=== PATIENT | female | born 1935 | race African-American/Black ===

== ENCOUNTER 2018-08-04 07:36 | Emergency (ER) | payer SELFPAY ==
[~2018-08-04] VITALS: Ht 167.6 cm; Wt 81.6 kg
[~2018-08-04 07:36] MED LIST: ASPI-492 PO; CITA-77 PO; CLON0.3T PO; FURO40TA4 PO; GABA300C10 PO; HYDR-2551 PO; HYDR-4072 PO; LOSA-49 PO; NIFE90TA30 PO
[2018-08-04] MEDS ORDERED: SODIUM CHLORIDE 0.9% 1,000 ML IV ONE (11:36)
[2018-08-04 12:22] LABS: Urine Bacteria FEW /hpf (None Seen); Urine Blood Negative /uL (Negative); Urine Specific Gravity 1.019 (1.001-1.035); Urine WBC 4 /hpf (0 - 5)
[2018-08-04 13:40] LABS: Hemoglobin 11.2 g/dL (12.2-16.2); Nucleated Red Blood Cells % 0.1 %; White Blood Cell 6.5 10^3/uL (4.4-10.8)
[2018-08-04 13:42] LABS: Basophils # (auto) 0 uL; Basophils % (auto) 0.6 % (0.0-2.0); Eosinophils # (auto) 0.2 uL; Eosinophils % (auto) 3.1 % (0.0-7.0); Hematocrit 33.5 % (36.0-46.0); Lymphocytes # (auto) 1.1 uL; Lymphocytes % (auto) 16.5 % (10.0-50.0); Mean Corpuscular Hemoglobin 34.1 pg (28.0-32.0); Mean Corpuscular Hgb Conc. 33.5 g/dL (32.0-36.0); Mean Corpuscular Volume 101.6 fL (80.0-100.0); Monocytes # (auto) 0.8 uL; Monocytes % (auto) 11.6 % (0.0-12.0); Neutrophils # (auto) 4.4 uL; Neutrophils % (auto) 68.2 % (37.0-80.0); Platelet Count (auto) 196 10^3/uL (140-450); Red Cell Distribution Width 14.3 % (11.8-14.3)
[2018-08-04 13:58] LABS: Anion Gap 8 (5-15); Blood Urea Nitrogen 54 mg/dL (7-18); Calcium 7.4 mg/dL (8.5-10.1); Carbon Dioxide 21 mmol/L (21-32); Chloride 111 mmol/L (98-107); Glucose 91 mg/dL (74-106); Lipase 346 U/L (73-393); Potassium 3.7 mmol/L (3.5-5.1); Sodium 140 mmol/L (136-145)
[2018-08-04 14:00] LABS: Alanine Aminotransferase 67 U/L (13-56); Aspartate Aminotransferase 43 U/L (15-37); BUN/Creatinine Ratio 30.5; GFR African American 35 mL/min; GFR Non-African American 29 mL/min
[2018-08-04 14:03] LABS: Alkaline Phosphatase 118 U/L (45-117); Bilirubin, Total 0.6 mg/dL (0.2-1.0); Total Protein 7.2 g/dL (6.4-8.2)
[2018-08-04 14:20] VITALS: BP 177/84
[2018-08-04] MEDS ORDERED: cefTRIAXone 1GM/50ML D5W 50 ML IV ONE (16:00)
[2018-08-04] MEDS ORDERED: FUROSEMIDE 40 MG/4 ML VIAL IV ONE (16:00)
[2018-08-04] MEDS ORDERED: LEVOFLOXACIN 500 MG TAB PO ONE (16:30)
[2018-08-04] MEDS ORDERED: FUROSEMIDE 20 MG TAB PO ONE (16:30)
== END 2018-08-04 17:44 | disposition home or self-care (01) ==
LOC: ER 07:36 → EDBD 07:36 → ER 17:44
DX: N39.0 Urinary tract infection, site not specified (principal); R60.9 Edema, unspecified; D64.89 Other specified anemias; I48.2 Chronic atrial fibrillation; R74.8 Abnormal levels of other serum enzymes; I13.0 Hypertensive heart and chronic kidney disease with heart failure and stage 1 through stage 4 chronic kidney disease, or unspecified chronic kidney disease; N18.3 Chronic kidney disease, stage 3 (moderate); I50.9 Heart failure, unspecified; M19.90 Unspecified osteoarthritis, unspecified site; J45.909 Unspecified asthma, uncomplicated; E78.5 Hyperlipidemia, unspecified; Z79.82 Long term (current) use of aspirin; Z79.899 Other long term (current) drug therapy
CPT/HCPCS: 36415; 71046; 74176; 80053; 81001; 83690; 83735; 83880; 84443; 85025; 93005; 96360; 99284; J7030; 96361

== ENCOUNTER 2018-08-21 15:43 | Inpatient (IN) | payer OTHER ==
[~2018-08-21] VITALS: Ht 162.6 cm; Wt 75.3 kg
[2018-08-21] MEDS ORDERED: methylPREDNISolone SOD SUCC 125 MG/2 ML VL IV ONE (17:00)
[2018-08-21] MEDS ORDERED: diphenhdrAMINE HCL 50 MG/1 ML VL IV ONE (17:00)
[2018-08-21 17:10] LABS: Eosinophils # (auto) 0.1 uL; Eosinophils % (auto) 1.9 % (0.0-7.0); Hemoglobin 11.3 g/dL (12.2-16.2)
[2018-08-21 17:11] LABS: Basophils # (auto) 0.1 uL; Basophils % (auto) 0.7 % (0.0-2.0); Hematocrit 34.5 % (36.0-46.0); Lymphocytes # (auto) 1.1 uL; Lymphocytes % (auto) 15.3 % (10.0-50.0); Mean Corpuscular Hemoglobin 33.6 pg (28.0-32.0); Mean Corpuscular Hgb Conc. 32.7 g/dL (32.0-36.0); Mean Corpuscular Volume 102.6 fL (80.0-100.0); Monocytes # (auto) 0.9 uL; Monocytes % (auto) 13.1 % (0.0-12.0); Neutrophils # (auto) 4.8 uL; Platelet Count (auto) 165 10^3/uL (140-450); Red Blood Cells 3.36 10^6/uL (4.0-5.20); Red Cell Distribution Width 14.5 % (11.8-14.3)
[2018-08-21 17:29] LABS: INR 1.07 (0.9-1.15); Prothrombin Time 11.4 sec (9.27-12.13)
[2018-08-21] MEDS ORDERED: EPINEPHrine HCL 1 MG/1 ML AMP SC ONE (17:30)
[2018-08-21 17:31] LABS: Albumin 3.2 g/dL (3.4-5.0); BUN/Creatinine Ratio 21.2; Calcium 8.1 mg/dL (8.5-10.1); Potassium 4.2 mmol/L (3.5-5.1)
[2018-08-21 17:35] LABS: Bilirubin, Total 0.6 mg/dL (0.2-1.0); Total Protein 7.3 g/dL (6.4-8.2)
[2018-08-21] MEDS ORDERED: diphenhdrAMINE HCL 50 MG/1 ML VL IV PRN (21:00)
[2018-08-21] MEDS ORDERED: TEMAZEPAM 15 MG CAP PO PRN (21:00)
[2018-08-21] MEDS ORDERED: MORPHINE SULFATE 4 MG/ML SYR/VIAL IV PRN (21:00)
[2018-08-21] MEDS ORDERED: ACETAMINOPHEN 325 MG TAB PO PRN (21:00)
[2018-08-21] MEDS ORDERED: NITROGLYCERIN 0.4 MG SL TAB SL PRN (21:00)
[2018-08-21] MEDS ORDERED: ONDANSETRON HCL 4 MG/2 ML VIAL IV PRN (21:00)
[2018-08-21] MEDS ORDERED: FUROSEMIDE 20 MG/2 ML VIAL IV ONE (21:00)
[2018-08-21] MEDS: cloNIDine HCL 0.1 MG TAB PO PRN (21:56)
[2018-08-21 23:15] VITALS: BP 162/87
--- NOTE | 2018-08-21 23:15 | NUR ---
Telemetry admit from ER NARAVINAYAK admitted to Telemetry unit after SBAR received. Patient oriented to Rachel Navas, primary RN, unit, room, bed, and unit policies regarding patient care and visiting hours. Patient now on continuous telemetry monitoring, tele box #[id number] and telemetry reading on arrival to unit is SB . Patient placed on bedside oxygen, weighed by bedscale and encouraged to call if they need something. All questions and concerns addressed, patient verbalized understanding. Note: alert and oriented x 4. On room air with even and unlabored respirations. no s/s of distress. Noted +2 pitting edema to lower extremities. Bilateral eyes swollen however patient is able to open both eyes. Patient is able to turn in bed independently. Patient ambulates with moderate assistance but very weak, provided BSC, within reach. Instructed patient to call for assistance PRN. bed low locked position with side rails up x 2 and call light within reach, bed alarm on. Will continue to monitor.
[2018-08-22] MEDS: cloNIDine HCL 0.1 MG TAB PO PRN (00:07)
[2018-08-22] MEDS: HYDROcodone-ACET 5/325MG TAB PO PRN ×2 (00:08→20:56)
[2018-08-22 05:20] VITALS: BP 119/59
[2018-08-22 06:31] LABS: Basophils # (auto) 0 uL; Eosinophils # (auto) 0.2 uL; Hemoglobin 10.2 g/dL (12.2-16.2); Neutrophils # (auto) 4.1 uL
[2018-08-22 06:35] LABS: Basophils % (auto) 0.8 % (0.0-2.0); Eosinophils % (auto) 2.5 % (0.0-7.0); Lymphocytes % (auto) 15.9 % (10.0-50.0); Mean Corpuscular Hemoglobin 34.5 pg (28.0-32.0); Mean Corpuscular Hgb Conc. 33.9 g/dL (32.0-36.0); Mean Corpuscular Volume 101.7 fL (80.0-100.0); Monocytes # (auto) 0.8 uL; Monocytes % (auto) 13.6 % (0.0-12.0); Neutrophils % (auto) 67.2 % (37.0-80.0); Platelet Count (auto) 138 10^3/uL (140-450); Red Blood Cells 2.95 10^6/uL (4.0-5.20); Red Cell Distribution Width 14.7 % (11.8-14.3); White Blood Cell 6.1 10^3/uL (4.4-10.8)
[2018-08-22 06:52] LABS: Albumin 2.7 g/dL (3.4-5.0); BUN/Creatinine Ratio 21.8; Potassium 4.3 mmol/L (3.5-5.1)
--- NOTE | 2018-08-22 07:00 | NUR ---
Closing Note patient resting in bed with even and unlabored respirations. No S/S of distress/SOB. IV intact and patent. Bed low locked position with side rails up x 2 and call light within reach, bed alarm on. Endorsed care to day shift RN.
[2018-08-22 07:04] LABS: Bilirubin, Total 0.9 mg/dL (0.2-1.0); Total Protein 6.2 g/dL (6.4-8.2)
--- NOTE | 2018-08-22 08:00 | NUR ---
RECEIVED PATIENT ALERT AND ORIENTED X4, NOT IN DISTRESS, RR=18 SAT=97%, S SARABJIT R=54 ON TELE MONITOR, DENIED CHEST PAIN OR SOB, ABDOMEN SOFT WITH ACTIVE BS, LAST BM=08/20/18 REPORTED, FACIAL EDEMA AND BILATERAL LOWER EXTREMITIES +2 EDEMA NOTED, RADIAL AND PEDAL PULSES PALPABLE, HEAD OF BED ELEVATED, BED ON LOW POSITION, RAILS UP X2, CALL LIGHT ON REACH, RESTING AND SLEEPING AT THIS MOMENT, WILL CONTINUE MONITORING.
[2018-08-22 09:00] VITALS: BP 119/58
[2018-08-22] MEDS ORDERED: methylPREDNISolone SOD SUCC 125 MG/2 ML VL IV ONE (09:15)
[2018-08-22] MEDS ORDERED: MORPHINE SULFATE 4 MG/ML SYR/VIAL IV PRN (09:30)
[2018-08-22] MEDS: diphenhdrAMINE HCL 50 MG/1 ML VL IV SCH ×2 (09:30→17:48)
[2018-08-22] MEDS ORDERED: FUROSEMIDE 40 MG TAB PO SCH (10:00)
[2018-08-22] MEDS ORDERED: LOSARTAN POTASSIUM 50 MG TAB PO SCH (10:00)
[2018-08-22] MEDS ORDERED: PANTOPRAZOLE 40 MG/10 ML VIAL IV SCH (10:00)
[2018-08-22] MEDS ORDERED: NIFEdipine ER 30 MG TAB PO SCH (10:00)
[2018-08-22] MEDS ORDERED: PANTOPRAZOLE 40 MG TAB PO SCH (10:00)
--- NOTE | 2018-08-22 10:00 | NUR ---
OUT OF BED TO BSC WITH ASSISTANCE AND BACK TO BED, TOLERATED WELL, STRICT NPO ORDERED, PENDING TRANSFER TO [facility], PENDING SS PROCESS, WILL CONTINUE MONITORING.
--- NOTE | 2018-08-22 11:33 | NUR ---
FAXED TRANSFER ORDER TO [facility]
[2018-08-22 12:30] VITALS: BP 140/72
--- NOTE | 2018-08-22 15:15 | NUR ---
[facility] AUTH PER CARMEN PEREZ OF [facility] IS [id number] [facility] ON WILL CALL
[2018-08-22 17:00] VITALS: BP 134/74
--- NOTE | 2018-08-22 18:00 | NUR ---
PENDING TRANSFER TO [facility], WAITING FOR BED REPORTED BY THE SS, INFILTRATED IV SITE D/C FORM LT.ARM, NEW SITE G 22 INSERTED ON RT ARM, TOLERATED WELL, NOT IN DISTRESS, DENIED PAIN, RESTING AND WATCHING TV AT THIS MOMENT.
--- NOTE | 2018-08-22 19:18 | NUR ---
NOT IN DISTRESS, RESTING ON BED, REPORT WAS GIVEN TO THE [employer] TECHNOLOGIST RN.
--- NOTE | 2018-08-22 19:45 | NUR ---
Opening Shift Note Assumed care of patient, awake and alert, oriented x 4. on room air with even and unlabored respirations. No S/S of distress or SOB. IV intact and patent. Bed low locked position with side rails up x 2 and call light within reach, bed alarm on. patient turns independently in bed and uses BSC with minimal assistance. Instructed on POC and to call for assist PRN, will continue to monitor for changes Q1hr and PRN.
[2018-08-22 22:06] VITALS: BP 130/74
--- NOTE | 2018-08-22 22:33 | NUR ---
Family notified of transfer spoke with patients daughter Kelsea, updated on transfer and room number, Kelsea verbalized understanding.
--- NOTE | 2018-08-22 22:45 | NUR ---
Report given to Loretta CISNEROS at [facility]
--- NOTE | 2018-08-22 23:15 | NUR ---
Called [facility] ETA 2 hours
--- NOTE | 2018-08-23 00:40 | NUR ---
Pt being trans to another hosp Order obtained for transfer of VINAYAK BAINS to [facility]. Report called/given to Loretta CISNEROS. Report given to EMS transport team. Medication reconciliation form completed and copy given to patient. Transported via [facility] along with copied chart and imaging films/disk and all personal belongings. No distress noted on time of departure. Family notified of destination and room number, Kelsea verbalized understanding. NOTE:
== END 2018-08-23 00:40 | disposition short-term general hospital (02) | DRG 915 ==
LOC: EDUNIT# 15:43 → ER 15:46 → TELE 21:12 → TELE-CENTR 23:13
PROVIDERS: ADMIT Nurse Practitioner; ATTEND Family Medicine
DX: T78.3XXA Angioneurotic edema, initial encounter (principal); I50.33 Acute on chronic diastolic (congestive) heart failure; I13.0 Hypertensive heart and chronic kidney disease with heart failure and stage 1 through stage 4 chronic kidney disease, or unspecified chronic kidney disease; D63.8 Anemia in other chronic diseases classified elsewhere; E78.5 Hyperlipidemia, unspecified; J45.909 Unspecified asthma, uncomplicated; N18.3 Chronic kidney disease, stage 3 (moderate); Z82.49 Family history of ischemic heart disease and other diseases of the circulatory system
CPT/HCPCS: 36415; 71045; 80053; 83880; 84484; 85025; 85610; 85730; 87081; 96372; 96374; 96375; A6257; C9113; G0378; J2405

== ENCOUNTER 2018-09-11 16:20 | Inpatient (IN) | payer OTHER ==
[~2018-09-11] VITALS: Ht 165.1 cm; Wt 81.6 kg
[2018-09-11 17:50] LABS: Basophils # (auto) 0.1 uL; Basophils % (auto) 1.1 % (0.0-2.0); Eosinophils # (auto) 0 uL; Eosinophils % (auto) 0.8 % (0.0-7.0); Hematocrit 37.2 % (36.0-46.0); Hemoglobin 11.8 g/dL (12.2-16.2); Lymphocytes # (auto) 0.6 uL; Lymphocytes % (auto) 11.1 % (10.0-50.0); Mean Corpuscular Hemoglobin 31.8 pg (28.0-32.0); Mean Corpuscular Hgb Conc. 31.8 g/dL (32.0-36.0); Mean Corpuscular Volume 100.1 fL (80.0-100.0); Monocytes # (auto) 0.7 uL; Monocytes % (auto) 12.2 % (0.0-12.0); Neutrophils # (auto) 4.2 uL; Neutrophils % (auto) 74.8 % (37.0-80.0); Nucleated Red Blood Cells % 0.1 %; Platelet Count (auto) 191 10^3/uL (140-450); Red Blood Cells 3.71 10^6/uL (4.0-5.20); Red Cell Distribution Width 14.9 % (11.8-14.3); White Blood Cell 5.6 10^3/uL (4.4-10.8)
[2018-09-11 18:08] LABS: Alanine Aminotransferase 25 U/L (13-56); Albumin 2.8 g/dL (3.4-5.0); Anion Gap 10 (5-15); Aspartate Aminotransferase 19 U/L (15-37); BUN/Creatinine Ratio 11.7; Blood Urea Nitrogen 20 mg/dL (7-18); Carbon Dioxide 20 mmol/L (21-32); Chloride 108 mmol/L (98-107); GFR African American 36 mL/min; GFR Non-African American 30 mL/min; Magnesium 2.3 mg/dL (1.6-2.6); Potassium 4.6 mmol/L (3.5-5.1); Sodium 138 mmol/L (136-145)
[2018-09-11 18:11] LABS: Alkaline Phosphatase 158 U/L (45-117); Bilirubin, Total 0.8 mg/dL (0.2-1.0); Total Protein 6.9 g/dL (6.4-8.2)
[2018-09-11 18:14] LABS: INR 1.22 (0.9-1.15); Partial Thromboplastin Time 35.3 sec (23.78-33.04); Prothrombin Time 12.9 sec (9.27-12.13)
[2018-09-11 18:16] LABS: Glucose 96 mg/dL (74-106)
[2018-09-11 19:39] LABS: Urine Bacteria FEW /hpf (None Seen); Urine Blood Negative /uL (Negative); Urine Specific Gravity 1.008 (1.001-1.035); Urine WBC 1 /hpf (0 - 5)
[2018-09-11] MEDS ORDERED: methylPREDNISolone SOD SUCC 125 MG/2 ML VL IV ONE (19:45)
[2018-09-11] MEDS ORDERED: diphenhdrAMINE HCL 50 MG/1 ML VL IV ONE (19:45)
[2018-09-11] MEDS ORDERED: ONDANSETRON HCL 4 MG/2 ML VIAL IV PRN (21:45)
[2018-09-11] MEDS ORDERED: ACETAMINOPHEN 500 MG TAB PO PRN (21:45)
[2018-09-11] MEDS ORDERED: ALBUTEROL SULF 2.5 MG/0.5ML(0.5%) NEB SOLN NEB ONE (21:45)
[2018-09-11] MEDS ORDERED: LORazepam 2MG/ML-1ML VIAL IV PRN (21:45)
[2018-09-11] MEDS ORDERED: diphenhdrAMINE HCL 50 MG/1 ML VL IV PRN (21:45)
[2018-09-11] MEDS ORDERED: cefTRIAXone 1GM/50ML D5W 50 ML IV ONE (21:45)
[2018-09-11] MEDS ORDERED: MORPHINE SULFATE 4 MG/ML SYR/VIAL IV PRN (21:45)
[2018-09-11] MEDS ORDERED: FUROSEMIDE 20 MG/2 ML VIAL IV ONE (21:45)
[2018-09-11] MEDS ORDERED: hydrALAZINE HCL 20 MG/ML VL IV PRN (22:00)
[2018-09-11] MEDS: methylPREDNISolone SOD SUCC 40 MG/ML VL IV SCH (23:33)
[2018-09-11] MEDS: hydrALAZINE HCL 25 MG TAB PO SCH (23:44)
[2018-09-12] MEDS: CLINDAMYCIN 600MG IV 50 ML IV SCH ×3 (00:18→14:12)
[2018-09-12] MEDS ORDERED: SODIUM CHLORIDE 0.9% 250 ML IV ONE (03:30)
[2018-09-12 03:52] LABS: Basophils # (auto) 0 uL; Basophils % (auto) 0.7 % (0.0-2.0); Eosinophils # (auto) 0.1 uL; Eosinophils % (auto) 1.7 % (0.0-7.0); Hematocrit 38.7 % (36.0-46.0); Hemoglobin 12.6 g/dL (12.2-16.2); Lymphocytes # (auto) 0.4 uL; Lymphocytes % (auto) 6.5 % (10.0-50.0); Mean Corpuscular Hemoglobin 32.4 pg (28.0-32.0); Mean Corpuscular Hgb Conc. 32.7 g/dL (32.0-36.0); Monocytes # (auto) 0.1 uL; Neutrophils % (auto) 90.1 % (37.0-80.0); Nucleated Red Blood Cells % 0.1 %; Platelet Count (auto) 193 10^3/uL (140-450); Red Blood Cells 3.91 10^6/uL (4.0-5.20); Red Cell Distribution Width 14.7 % (11.8-14.3); White Blood Cell 6.6 10^3/uL (4.4-10.8)
[2018-09-12 04:11] LABS: BUN/Creatinine Ratio 13.5; Calcium 8.2 mg/dL (8.5-10.1); Potassium 3.9 mmol/L (3.5-5.1)
[2018-09-12] MEDS: methylPREDNISolone SOD SUCC 40 MG/ML VL IV SCH ×2 (06:39→14:12)
[2018-09-12] MEDS ORDERED: cefTRIAXone 1GM/50ML D5W 50 ML IV SCH (09:00)
[2018-09-12] MEDS: hydrALAZINE HCL 25 MG TAB PO SCH (09:13)
[2018-09-12] MEDS: HYDROcodone-ACET 5/325MG TAB PO PRN ×2 (09:14→15:17)
[2018-09-12] MEDS ORDERED: PANTOPRAZOLE 40 MG/10 ML VIAL IV SCH (10:00)
[2018-09-12] MEDS ORDERED: ASPirin-EC 81 mg tab PO SCH (10:00)
[2018-09-12] MEDS ORDERED: FUROSEMIDE 40 MG/4 ML VIAL IV SCH (10:00)
[2018-09-12] MEDS ORDERED: amLODIPine BESYLATE 5 MG TAB PO SCH (10:00)
--- NOTE | 2018-09-12 16:18 | NUR ---
Transfer Informed pt only wants to go to [facility] or [place]. They were offered another [place] further away and refused. Transfer order faxed to [facility] with above information given to them
[2018-09-12 20:37] VITALS: BP 113/54
== END 2018-09-12 20:31 | disposition short-term general hospital (02) | DRG 915 ==
LOC: EDBD 16:20 → ER 16:27 → TELE 20:31
PROVIDERS: ADMIT Nurse Practitioner Family; ATTEND Family Medicine
DX: T78.3XXA Angioneurotic edema, initial encounter (principal); I50.43 Acute on chronic combined systolic (congestive) and diastolic (congestive) heart failure; E44.0 Moderate protein-calorie malnutrition; N17.9 Acute kidney failure, unspecified; I11.0 Hypertensive heart disease with heart failure; E78.5 Hyperlipidemia, unspecified; K80.20 Calculus of gallbladder without cholecystitis without obstruction; J45.909 Unspecified asthma, uncomplicated; M19.90 Unspecified osteoarthritis, unspecified site; I25.10 Atherosclerotic heart disease of native coronary artery without angina pectoris; Z79.82 Long term (current) use of aspirin; Z79.899 Other long term (current) drug therapy
CPT/HCPCS: 36415; 71045; 80048; 80053; 81001; 83735; 83880; 84484; 85025; 85610; 85730; 93005; 94640; C9113; G0378; J0696; J3490